=== PATIENT | female | born 1960 | race Caucasian/White ===

== ENCOUNTER 2025-03-25 16:29 | Inpatient (IN) ==
[2025-03-25 17:24] LABS: Basophils # (auto) 0.03 K/uL (0.00-0.20); Basophils % (auto) 0.5 %; Eosinophils # (auto) 0.02 K/uL (0.00-0.50); Eosinophils % (auto) 0.3 %; Hematocrit (blood only) 36.3 % (37.0-47.0); Hemoglobin 12.5 g/dl (12.0-16.0); Immature Granulocytes # (auto) 0.01 K/uL (0.01-0.20); Immature Granulocytes % (auto) 0.2 %; Lymphocytes # (auto) 1.27 K/uL (1.20-3.40); Lymphocytes % (auto) 20.3 %; Mean Corpuscular Hemoglobin 32.6 pg (25.0-34.0); Mean Corpuscular Hgb Conc 34.4 g/dL (32.0-36.0); Mean Corpuscular Volume 94.8 fL (80.0-100.0); Mean Platelet Volume 10.7 fL (9.4-12.4); Monocytes # (auto) 0.37 K/uL (0.11-0.59); Monocytes % (auto) 5.9 %; Neutrophils # (auto) 4.55 K/uL (1.40-6.50); Neutrophils % (auto) 72.8 %; Platelet Count 207 K/uL (130-400); RDW Coefficient of Variation 14.3 % (11.5-14.5); RDW Standard Deviation 48.7 fL (36.4-46.3); Red Blood Count 3.83 M/uL (4.20-5.40); White Blood Count 6.25 K/ul (4.8-10.8)
[2025-03-25 17:41] LABS: Albumin Globulin Ratio 1.1 (0.9-2); Albumin Level 3.7 gm/dl (3.4-5.0); BUN Creatinine Ratio 21.7 (10-20); Bilirubin,Total 1.1 mg/dl (0.2-1.0); Creatinine Clr Calc Pharmacy 83.9 ml/min; Globulin 3.5 gm/dl (2.5-4.0); Magnesium 1.6 mg/dl (1.7-2.4); Potassium 3.6 mmol/L (3.5-5.1); Total Protein 7.2 gm/dl (6.0-8.3)
[2025-03-25 17:47] LABS: Troponin I High Sensitivity 8.7 pg/ml (0-14)
[2025-03-25] MEDS: MAGNESIUM SULFATE / D5W 1 GM/100 ML BAG IV STA ×2 (17:48→23:55)
[2025-03-25 18:04] LABS: INR 1.1 (0.9-1.1); Prothrombin Time 11.8 Seconds (9.0-12.0)
[2025-03-25] MEDS: NITROGLYCERIN 2% OINTMENT 30GM TUBE EXT STA (18:16)
[2025-03-25] MEDS: FUROSEMIDE 40 MG/4 ML VIAL IV ONE ×2 (18:17→21:09)
--- NOTE | 2025-03-25 18:45 | Emergency Department Note ---
Impression & Plan Chest pain, Dyspnea, Congestive heart failure (CHF) ED Provider Note ED Provider Note NAME: LILLIE KENNEDY AGE:64 SEX: Female : 1960 ARRIVES VIA: Private vehicle INFORMANT: Patient ED PROVIDER(s): Katharine Lopez DO CHIEF COMPLAINT: Referred by Dr. Abebe HPI: This is a 64-year-old female who presents emergency room due to concern for chest pain, and shortness of breath. After being seen by her PCP today she was referred here for additional evaluation. Patient admits to approximately 1 week of chest pain and increased shortness of breath. She is also noted increased lower extremity edema however predominantly this has been on the left. She states she is more tired and cannot perform daily chores at home. She denies fevers or chills but states she does have a cough intermittently productive of clear/yellow sputum. No hemoptysis noted. Patient also notes she has been unable to sleep laying flat as it gives her increased difficulty breathing and worsening chest pain. She states the chest pain does not radiate into her back or arms. No change in bowel or bladder function. No recent change in any medications. She denies any history of heart or kidney problems. at bedside brought all of her medications with which do include furosemide daily. Patient is a diabetic. states her blood sugars typically run around 300. She states she does not follow with cardiology and has never had an echo. PAST MEDICAL HISTORY:See Below PAST SURGICAL HISTORY:See Below FAMILY HISTORY:See Below SOCIAL HISTORY:See Below HOME MEDICATIONS:See Below ALLERGIES:See Below VITALS:See Below PHYSICAL EXAMINATION: GENERAL: alert, uncomfortable appearing, well nourished, no distress, non-toxic EYE EXAM: normal conjunctiva, PERRL and EOM's grossly intact OROPHARYNX: no exudate, no erythema, lips, buccal mucosa, and tongue normal and mucous membranes are moist NECK: supple, no nuchal rigidity, no adenopathy, non-tender LUNGS: Clear to auscultation. Normal chest wall mechanics, no w/r/r HEART: no murmurs, S1 normal and S2 normal, no reproducible pain with palpation ABDOMEN: abdomen soft, non-tender, normo-active bowel sounds, no masses, no rebound or guarding. SKIN: no rashes, petechiae, orbruising UPPER EXTREMITIES: upper extremities are grossly normal. FROM, nml pulses b/l. LOWER EXTREMITIES: 2+ bilateral pitting edema although left greater than right. FROM, nml pulses b/l. NEURO EXAM: Normal sensorium, cranial nerves II-XII grossly intact, normal speech, no facial droop,nogross weakness of arms, no gross weakness of legs. Gross sensation intact. No ataxia. Vital Signs: reviewed and remarkable Differential Diagnosis: acute coronary syndrome, pericarditis, pulmonary embolus, aortic dissection, pneumonia, pneumothorax, musculoskeletal pain, shingles, GERD, GI bleed, as well as others were considered MEDICAL DECISION MAKING: This is a 64-year-old female who presents to the emergency department after being referred by her PCP due to concern for 1 week of chest pain, dyspnea, orthopnea, and fatigue as well as increased lower extremity edema. Patient was afebrile and hemodynamically stable. Labs drawn and sent, IV established, EKG and chest x-ray performed at bedside and interpreted by me and patient monitored on telemetry. Patient sent for an ultrasound of the left lower extremity additionally due to the asymmetry noted in the swelling of the left lower extremities. Patient given an additional dose of IV Lasix and Nitropaste applied additionally due to pulmonary edema noted on chest x-ray and elevated BNP. Patient's troponin negative, and renal function normal. No evidence of occult infectious etiology. I suspect evolving CHF. Patient denies any prior cardiology evaluation. Case discussed with the hospitalist team for additional evaluation and management. Patient did report improvement in her symptoms with medications given while in the ER. Consultation(s): 2044: Discussed with Dr. Wylie, [facility] hospitalist team, for additional evaluation and management. ER Treatment Provided: See below Diagnostics Interpreted By Me: -ECG: Normal sinus at 92, leftward axis, left bundle branch block, nonspecific ST/T wave changes, PVC noted -Cardiac Monitoring: An order was placed for continuous cardiac monitoring. The monitor shows a rate of 80 with normal sinus rhythm. -Laboratory studies: As stated above and show below. -Imaging studies: cxr: Mild cardiomegaly, no wide mediastinum, no focal consolidation, no pleural effusion, pulmonary edema noted bilaterally Triage Nursing Note Reviewed Prior/Outside Records Reviewed Past Med/Surg History Problem List (Updated 03/25/25 @ 21:09 by Micheal L Inessa, DO) Obesity (BMI 30.0-34.9) Diabetes mellitus type 2, noninsulin dependent Primary hypertension Acute on chronic heart failure with reduced ejection fraction (HFrEF, <= 40%) Dyspnea (Acute) Chest pain (Acute) Congestive heart failure (CHF) (Acute) Diabetes mellitus (Acute) Social History Smoking Status: Unknown if ever smoked Hx Alcohol Use: No Hx Substance Use: No Preferred Language: Kyrgyz Communication Ability: Effective Endorsement Clerk Required: No Beliefs That Will Affect Care: None Current Living Situation: Spouse Other Information That Helps Us Care for You: No Feels Safe at Home: Yes Safety Concerns: Feels Safe At This Time Assistive Devices: Denture - Upper and Glasses Allergies Allergies Allergy/AdvReac Type Severity Reaction Status Date / Time No Known Allergies Allergy Unverified 12/21/14 03:45 Home Meds Home Medications Medication Instructions Recorded Confirmed aspirin 81 mg tablet,delayed 81 mg PO DAILY 03/25/25 03/25/25 release furosemide 40 mg tablet 80 mg PO QAM 03/25/25 03/25/25 glipizide 2.5 mg tablet, extended 2.5 mg PO DAILYBB 03/25/25 03/25/25 release 24 hr lisinopril 2.5 mg tablet 2.5 mg PO QAM 03/25/25 03/25/25 metformin 500 mg tablet 100 mg PO BIDM 03/25/25 03/25/25 metoprolol succinate 50 mg 50 mg PO QAM 03/25/25 03/25/25 tablet,extended release 24 hr nitroglycerin 0.4 mg sublingual 0.4 mg sublingual .Q 5 MINUTES 03/25/25 03/25/25 tablet (Nitrostat) PRN Chest Pain Results & Data (ED) Vital Signs Vital Signs - 24 hr 03/25/25 16:33 03/25/25 17:18 03/25/25 17:20 Temperature 36.9 C Temperature Source Temporal Artery Scan Pulse Rate 90 89 90 Pulse Rate from SpO2 Sensor 89 Respiratory Rate 16 Respiratory Effort / Characteristics Non-Labored Spontaneous Respiratory Depth Normal Blood Pressure 134/85 Blood Pressure [Right Arm] Blood Pressure Mean 101 Blood Pressure Mean [Right Arm] Blood Pressure Position [Right Arm] Pulse Oximetry 95 Oxygen Delivery Method Room Air Sepsis Recent Fever Within 48 Hours No Sepsis New/Unexplained Change in Mental Status No Sepsis Action Taken by Nursing No Action Required 03/25/25 17:21 03/25/25 17:33 03/25/25 17:45 Temperature Temperature Source Pulse Rate 86 85 84 Pulse Rate from SpO2 Sensor 86 83 84 Respiratory Rate 24 21 Respiratory Effort / Characteristics Respiratory Depth Blood Pressure Blood Pressure [Right Arm] Blood Pressure Mean Blood Pressure Mean [Right Arm] Blood Pressure Position [Right Arm] Pulse Oximetry 95 Oxygen Delivery Method Sepsis Recent Fever Within 48 Hours Sepsis New/Unexplained Change in Mental Status Sepsis Action Taken by Nursing 03/25/25 17:51 03/25/25 18:18 03/25/25 18:21 Temperature Temperature Source Pulse Rate 80 83 79 Pulse Rate from SpO2 Sensor 81 83 80 Respiratory Rate 22 24 Respiratory Effort / Characteristics Respiratory Depth Blood Pressure Blood Pressure [Right Arm] Blood Pressure Mean Blood Pressure Mean [Right Arm] Blood Pressure Position [Right Arm] Pulse Oximetry 94 94 Oxygen Delivery Method Sepsis Recent Fever Within 48 Hours Sepsis New/Unexplained Change in Mental Status Sepsis Action Taken by Nursing 03/25/25 18:30 03/25/25 19:45 03/25/25 20:06 Temperature Temperature Source Pulse Rate Pulse Rate from SpO2 Sensor 89 88 Respiratory Rate 20 17 Respiratory Effort / Characteristics Respiratory Depth Blood Pressure 128/84 143/80 H Blood Pressure [Right Arm] 127/75 Blood Pressure Mean 98 101 Blood Pressure Mean [Right Arm] 92 Blood Pressure Position [Right Arm] Sitting Pulse Oximetry 93 92 Oxygen Delivery Method Sepsis Recent Fever Within 48 Hours Sepsis New/Unexplained Change in Mental Status Sepsis Action Taken by Nursing 03/25/25 20:12 03/25/25 20:30 03/25/25 21:00 Temperature Temperature Source Pulse Rate Pulse Rate from SpO2 Sensor 81 83 Respiratory Rate Respiratory Effort / Characteristics Respiratory Depth Blood Pressure 143/80 H 133/87 137/88 Blood Pressure [Right Arm] Blood Pressure Mean 104 102 104 Blood Pressure Mean [Right Arm] Blood Pressure Position [Right Arm] Pulse Oximetry 92 Oxygen Delivery Method Sepsis Recent Fever Within 48 Hours Sepsis New/Unexplained Change in Mental Status Sepsis Action Taken by Nursing Laboratory Data 03/25/25 17:12 03/25/25 17:12 Lab Results 03/25/25 03/25/25 Range/Units 17:12 20:20 WBC 6.25 (4.8-10.8) K/ul RBC 3.83 L (4.20-5.40) M/uL Hgb 12.5 (12.0-16.0) g/dl Hct 36.3 L (37.0-47.0) % MCV 94.8 (80.0-100.0) fL MCH 32.6 (25.0-34.0) pg MCHC 34.4 (32.0-36.0) g/dL RDW Std Deviation 48.7 H (36.4-46.3) fL RDW Coeff of Yeni 14.3 (11.5-14.5) % Plt Count 207 (130-400) K/uL MPV 10.7 (9.4-12.4) fL Immature Gran % (Auto) 0.2 % Neut % (Auto) 72.8 % Lymph % (Auto) 20.3 % Frio % (Auto) 5.9 % Eos % (Auto) 0.3 % Baso % (Auto) 0.5 % Neut # (Auto) 4.55 (1.40-6.50) K/uL Lymph # (Auto) 1.27 (1.20-3.40) K/uL Frio # (Auto) 0.37 (0.11-0.59) K/uL Eos # (Auto) 0.02 (0.00-0.50) K/uL Baso # (Auto) 0.03 (0.00-0.20) K/uL Immature Gran # (Auto) 0.01 (0.01-0.20) K/uL PT 11.8 (9.0-12.0) Seconds INR 1.1 (0.9-1.1) Sodium 137 (136-145) mmol/L Potassium 3.6 (3.5-5.1) mmol/L Chloride 103 (98-107) mmol/L Carbon Dioxide 25 (21-32) mmol/L Anion Gap 9 (3-11) BUN 18 (6-23) mg/dl Creatinine 0.83 (0.6-1.2) mg/dl Est Cr Clr Drug Dosing 83.9 ml/min eGFR 78.18 BUN/Creatinine Ratio 21.7 H (10-20) Glucose 203 H (70-99(Fasting)) mg/dl Calcium 9.0 (8.6-10.3) mg/dl Magnesium 1.6 L (1.7-2.4) mg/dl Total Bilirubin 1.1 H (0.2-1.0) mg/dl AST 23 (13-39) U/L ALT 26 (7-52) U/L Alkaline Phosphatase 78 (34-104) U/L Troponin I High Sens 8.7 (0-14) pg/ml B-Natriuretic Peptide 1113 H (0-100) pg/ml Total Protein 7.2 (6.0-8.3) gm/dl Albumin 3.7 (3.4-5.0) gm/dl Globulin 3.5 (2.5-4.0) gm/dl Albumin/Globulin Ratio 1.1 (0.9-2) Lipase 14 (11-82) U/L TSH 2.931 (0.300-4.500) uIu/ml Urine Color Yellow Urine Appearance Clear (Clear) Urine pH 7.5 (4.5-7.5) Ur Specific [place] 1.007 (1.000-1.030) Urine Protein Negative (Negative) Urine Glucose (UA) Negative (Negative) Urine Ketones Negative (Negative) Urine Blood Negative (Negative) Urine Nitrite Negative (Negative) Urine Bilirubin Negative (Negative) Urine Urobilinogen Negative (Negative) Ur Leukocyte Esterase 1+ H (Negative) Urine WBC (Auto) 0-5 (0-5) /hpf Urine RBC (Auto) 0-2 (0-2) /hpf U Hyaline Cast (Auto) 0-2 (0-2) /lpf U Epithel Cells (Auto) 0-2 (0-2) /hpf Urine Bacteria (Auto) None Seen (None Seen) Urine Comment Administered Medications Enoxaparin Sodium (Enoxaparin Inj 40 Mg/0.4 Ml Syr) 40 mg SQ Q24H [facility] Stop: 04/24/25 20:59 Last Admin: 03/25/25 23:55 Dose: 40 mg Documented By: BABAR Magnesium Sulfate/Dextrose (Magnesium Sulfate / D5w) 1 gm in 100 mls @ 50 mls/hr IV ONE STA Stop: 03/26/25 00:37 Last Admin: 03/25/25 23:55 Dose: 50 mls/hr Documented By: BABAR Insulin Aspart (Insulin Aspart Per Unit Charge) 0 units SC ACHS [facility] Stop: 04/24/25 22:37 Last Admin: 03/25/25 23:55 Dose: 6 units Documented By: BABAR Co-signed By: [facility] Discontinued Medications Furosemide (Furosemide 40 Mg/4 Ml Vial) 40 mg IV ONE ONE Stop: 03/25/25 18:11 Last Admin: 03/25/25 18:17 Dose: 40 mg Documented By: MARIA L Furosemide (Furosemide 40 Mg/4 Ml Vial) 80 mg IV ONE ONE Stop: 03/25/25 20:51 Last Admin: 03/25/25 21:09 Dose: 80 mg Documented By: MARIA L Magnesium Sulfate/Dextrose (Magnesium Sulfate / D5w) 1 gm in 100 mls @ 100 mls/hr IV NOW STA Stop: 03/25/25 18:42 Last Infusion: 03/25/25 19:02 Dose: Infused Documented By: MARIA L Admin: 03/25/25 17:48 Dose: 100 mls/hr Documented By: MARIA L Nitroglycerin (Nitroglycerin 2% Ointment 30gm Tube) 1 inch EXT NOW STA Stop: 03/25/25 18:11 Last Admin: 03/25/25 18:16 Dose: 1 inch Documented By: MARIA L Potassium Chloride (Potassium Chloride Crtab 20 Meq Tabcr) 40 meq PO NOW STA Stop: 03/25/25 22:39 Last Admin: 03/25/25 23:55 Dose: 40 meq Documented By: BABAR Imaging Data Radiologist's Impression: Venous Doppler Study 03/25/25 17:07 EXAM: US venous doppler LE CLINICAL HISTORY: Edema, pain. TECHNIQUE: Ultrasound examination of left lower extremity veins was performed in real time and duplex. One or more of the following were performed- spectral analysis, resistive index, waveform analysis, and pulsed Doppler. COMPARISON: None. FINDINGS: Normal phasic, non-pulsatile and spontaneous flow is noted in left common femoral, proximal great saphenous, superficial femoral, deep femoral, popliteal, anterior, posterior tibial and peroneal veins. Visualized veins of left lower extremity demonstrate normal compressibility. No sonographic evidence of acute deep vein thrombosis (DVT) is detected in the visualized veins of lower extremity. Compression and Augmentation: All evaluated veins compress fully with applied transducer pressure. Augmentation of venous flow is noted with distal compression. Additional Findings: No evidence of intraluminal thrombus. IMPRESSION: No sonographic evidence of acute DVT detected in left common femoral, proximal great saphenous, superficial femoral, deep femoral, popliteal, anterior, posterior tibial and peroneal veins, at the time of examination. Disclaimer: DVT could be missed early in the disease when clot burden is minimal. For patients with moderate and high pretest probability of DVT and negative ultrasound, the [employer] clinical guidelines recommend testing with a D-dimer assay or repeat ultrasound in 5-7 days. If symptoms worsen, the Society of radiologists in ultrasound recommends repeating ultrasound even earlier. Electronically signed by Ole Montes 03-25-2025 8:08 PM Chest X-Ray 03/25/25 17:08 EXAM: XR chest 1V portable CLINICAL HISTORY: sob, cp. TECHNIQUE: An X-ray image of the chest is obtained in AP projection. COMPARISON: No prior studies are available for comparison. FINDINGS: Pulmonary Parenchyma: Accentuated bronchovascular markings and pulmonary reticulations bilaterally. associated bilateral middle and lower lung zones areas of parenchymal veiling. No evidence of consolidation, collapse, or focal opacities. No pulmonary nodules are identified. No evidence of pleural effusion or pleural thickening. Heart and Mediastinum: Mild cardiomegaly. No mediastinal widening or masses. No hilar or mediastinal lymphadenopathy. prominent hilar vascular shadows. prominent aortic knuckle. Bony Thorax: Bony thorax appears intact without fractures or deformities. Soft Tissues: Soft tissues overlying the chest wall are unremarkable. IMPRESSION: 1. Mild cardiomegaly. 2. Bilateral accentuation of bronchovascular markings and pulmonary reticulations with parenchymal veiling, possibly attributed to pulmonary congestion/edema. Also early inflammatory process could not be ruled out. 3. Correlate clinically. Electronically signed by Ole Montes 03-25-2025 7:12 PM Discharge Plan Visit Data Chief Complaint: Cardiac Assessment Stated Complaint: CARDIAC ASSESSMENT ED Provider: Katharine Lopez Discharge Problem: Chest pain, Dyspnea, Congestive heart failure (CHF) Patient Disposition: Admitted As Inpatient Condition: Fair Discharge Instructions Interventions: ED Discharge Assessment Last Done: 03/25/25 22:13
--- NOTE | 2025-03-25 19:13 | XRay Report ---
EXAM: XR chest 1V portable CLINICAL HISTORY: sob, cp. TECHNIQUE: An X-ray image of the chest is obtained in AP projection. COMPARISON: No prior studies are available for comparison. FINDINGS: Pulmonary Parenchyma: Accentuated bronchovascular markings and pulmonary reticulations bilaterally. associated bilateral middle and lower lung zones areas of parenchymal veiling. No evidence of consolidation, collapse, or focal opacities. No pulmonary nodules are identified. No evidence of pleural effusion or pleural thickening. Heart and Mediastinum: Mild cardiomegaly. No mediastinal widening or masses. No hilar or mediastinal lymphadenopathy. prominent hilar vascular shadows. prominent aortic knuckle. Bony Thorax: Bony thorax appears intact without fractures or deformities. Soft Tissues: Soft tissues overlying the chest wall are unremarkable. IMPRESSION: 1. Mild cardiomegaly. 2. Bilateral accentuation of bronchovascular markings and pulmonary reticulations with parenchymal veiling, possibly attributed to pulmonary congestion/edema. Also early inflammatory process could not be ruled out. 3. Correlate clinically. Electronically signed by Ole Montes 03-25-2025 7:12 PM
--- NOTE | 2025-03-25 20:08 | Ultrasound Report ---
EXAM: US venous doppler LE LT CLINICAL HISTORY: Edema, pain. TECHNIQUE: Ultrasound examination of left lower extremity veins was performed in real time and duplex. One or more of the following were performed- spectral analysis, resistive index, waveform analysis, and pulsed Doppler. COMPARISON: None. FINDINGS: Normal phasic, non-pulsatile and spontaneous flow is noted in left common femoral, proximal great saphenous, superficial femoral, deep femoral, popliteal, anterior, posterior tibial and peroneal veins. Visualized veins of left lower extremity demonstrate normal compressibility. No sonographic evidence of acute deep vein thrombosis (DVT) is detected in the visualized veins of lower extremity. Compression and Augmentation: All evaluated veins compress fully with applied transducer pressure. Augmentation of venous flow is noted with distal compression. Additional Findings: No evidence of intraluminal thrombus. IMPRESSION: No sonographic evidence of acute DVT detected in left common femoral, proximal great saphenous, superficial femoral, deep femoral, popliteal, anterior, posterior tibial and peroneal veins, at the time of examination. Disclaimer: DVT could be missed early in the disease when clot burden is minimal. For patients with moderate and high pretest probability of DVT and negative ultrasound, the [employer] clinical guidelines recommend testing with a D-dimer assay or repeat ultrasound in 5-7 days. If symptoms worsen, the Society of radiologists in ultrasound recommends repeating ultrasound even earlier. Electronically signed by Ole Montes 03-25-2025 8:08 PM
[2025-03-25 20:40] LABS: Appearance Urine Clear (Clear); Bacteria Urine Automated None Seen (None Seen); Bilirubin Urine Negative (Negative); Blood Urine Negative (Negative); Cast Urine Automated 0-2 /lpf (0-2); Color Urine Yellow; Epithelial Cell Urine Auto 0-2 /hpf (0-2); Glucose Urine UA Negative (Negative); Ketones Urine Negative (Negative); Leukocyte Esterase Urine 1+ (Negative); Nitrite Urine Negative (Negative); Protein Urine Negative (Negative); RBC Urine Automated 0-2 /hpf (0-2); Specific Gravity Urine 1.007 (1.000-1.030); Urobilinogen Urine Negative (Negative); WBC Urine Automated 0-5 /hpf (0-5); pH Urine 7.5 (4.5-7.5)
--- NOTE | 2025-03-25 21:11 | History & Physical Report ---
Date of Service March 25, 2025 Assessment & Plan (1) Acute on chronic heart failure with reduced ejection fraction (HFrEF, <= 40%): (2) Primary hypertension: (3) Diabetes mellitus type 2, noninsulin dependent: (4) Obesity (BMI 30.0-34.9): Plan Patient 64-year-old female with known systolic heart failure with ejection fraction of 2025% presents with increasing shortness of breath, dyspnea on exertion and leg swelling over the past several weeks. Presents in decompensated heart failure. Patient requires hospital level care, monitoring and IV medications and specialty consultation. Admit to monitored setting Aggressive IV diuresis with Lasix. Patient reports that she was taking 160 to 200 mg of Lasix orally on a daily basis at home without significant impact on her edema or symptoms. Increase lisinopril dose Continue metoprolol XL, monitor blood pressure Electrolyte replacement Update echocardiogram Cardiology consultation Monitor glucose, insulin sliding scale. At some point may need to have discussion with them if that she would be interested starting Jardiance, may be an issue affordability for them Start Aldactone Overall work towards goal-directed medical therapy for CHF Case management to help coordinate outpatient follow-up with CHF clinic Discussion advanced directives with patient and at the bedside. They request that she be DNR/DNI History of Present Illness Chief Complaint: Shortness of breath and leg swelling Primary Care Provider: Bronson Thakur Patient 64-year-old female with known systolic congestive heart failure and cardiomyopathy presents to the emergency room from her physician's office with complaints of shortness of breath that has been progressing over the past several weeks as well as leg swelling. In the emergency room chest x-ray and BNP is consistent with decompensated heart failure. Ultrasound lower extremities negative for DVT. She was referred to our service for further evaluation. Time my evaluation patient still somewhat short of breath. She admits to significant leg swelling . This is progressed over the past several weeks. She admits to dyspnea on exertion, orthopnea and decreased exercise tolerance. She was concerned that she could not fully plant her whole garden due to her shortness of breath. She denies any chest pain. No fever or chills. No cough or cold symptoms. No nausea or vomiting. No changes in her bowel or bladder habits. She reports that she knows that she needs to take additional Lasix. She states that she has been taking up to four 540 mg tablets of Lasix on a daily basis but has not really noticed much improvement in her edema. Allergies Allergy/AdvReac Type Severity Reaction Status Date / Time No Known Allergies Allergy Unverified 12/21/14 03:45 Home Medications Medication Instructions Recorded Confirmed Type aspirin 81 mg tablet,delayed 81 mg PO DAILY 03/25/25 03/25/25 History release furosemide 40 mg tablet 80 mg PO QAM 03/25/25 03/25/25 History glipizide 2.5 mg tablet, extended 2.5 mg PO DAILYBB 03/25/25 03/25/25 History release 24 hr lisinopril 2.5 mg tablet 2.5 mg PO QAM 03/25/25 03/25/25 History metformin 500 mg tablet 100 mg PO BIDM 03/25/25 03/25/25 History metoprolol succinate 50 mg 50 mg PO QAM 03/25/25 03/25/25 History tablet,extended release 24 hr nitroglycerin 0.4 mg sublingual 0.4 mg sublingual .Q 5 MINUTES 03/25/25 03/25/25 History tablet (Nitrostat) PRN Chest Pain Past Med/Surg History Problem List (Updated 03/25/25 @ 21:09 by Micheal Wylie DO) Obesity (BMI 30.0-34.9) Diabetes mellitus type 2, noninsulin dependent Primary hypertension Acute on chronic heart failure with reduced ejection fraction (HFrEF, <= 40%) Dyspnea (Acute) Chest pain (Acute) Congestive heart failure (CHF) (Acute) Diabetes mellitus (Acute) Social History Smoking Status: Never smoker Preferred Language: Tunisian Feels Safe at Home: Yes Review of Systems Review of Systems: Pertinent positive and negative review of systems as mentioned in the HPI Physical Exam Physical Exam: Constitutional: Alert, ill in appearance, nontoxic HEENT: Mucous membranes moist. Sclera clear Neck: Soft, no adenopathy Lungs: Decreased breath sounds, poor airflow, fine crackles throughout CV: S1-S2, regular, no significant murmur Abdomen: Soft, nontender, nondistended Extremities: Thick pitting edema up through knees and posterior thighs Musculoskeletal: No significant joint tenderness Neuro: No focal deficits Psych: Cooperative, normal mood Results & Data Results & Data Vital Signs (Past 12 Hours) Vital Signs Temp Pulse Resp BP BP Pulse Ox O2 Del Method 03/25/25 20:06 17 143/80 H 92 03/25/25 19:45 20 128/84 93 03/25/25 18:30 127/75 03/25/25 18:21 79 24 94 03/25/25 18:18 83 03/25/25 17:51 80 22 94 03/25/25 17:45 84 03/25/25 17:33 85 21 95 03/25/25 17:21 86 24 03/25/25 17:20 90 03/25/25 17:18 89 03/25/25 16:33 36.9 C 90 16 134/85 95 Room Air Diagnostic Findings Reviewed imaging, laboratory and diagnostic studies. Pertinent findings as below. Reviewed outside EMR, echocardiogram from 2014 shows ejection fraction 20-25% Urinalysis unremarkable Ultrasound of the lower extremities negative for DVT Personally reviewed chest x-ray images no consolidative infiltrate, pulmonary edema in the lower lobes Personally reviewed EKG sinus rhythm with incomplete bundle branch block WBC 6.2 Hemoglobin 12.5 Platelets of 207 INR 1.1 Creatinine 0.83 Magnesium 1.6 Potassium 3.6 BNP 1113 Troponin 8.7 Code Status & VTE Plan VTE Prophylaxis Plan VTE Prophylaxis will be ordered: Yes
[2025-03-25] MEDS ORDERED: ALUMINUM/MAGNESIUM SUSP 30 ML UDC PO PRN (22:38)
[2025-03-25] MEDS ORDERED: ONDANSETRON INJ 2 MG/ML 2 ML VIAL IV PRN (22:38)
[2025-03-25] MEDS ORDERED: GLUCOSE 40% GEL 15 GM TUBE PO PRN (22:38)
[2025-03-25] MEDS ORDERED: DEXTROSE 50% 50 ML SYRINGE IV PRN (22:38)
[2025-03-25] MEDS ORDERED: GLUCAGON FOR INJ 1 MG VIAL SQ PRN (22:38)
[2025-03-25] MEDS ORDERED: CARBOHYDRATES FOR HYPOGLYCEMIA PO PRN (22:38)
[2025-03-25] MEDS ORDERED: GLUCOSE 10 TAB/TUBE PO PRN (22:38)
[2025-03-25] MEDS ORDERED: MELATONIN 3 MG TAB PO PRN (22:38)
[2025-03-25 23:16] LABS: Thyroid Stimulating Hormone 2.931 uIu/ml (0.300-4.500)
[2025-03-25] MEDS: INSULIN ASPART PER UNIT CHARGE SC SCH (23:55)
[2025-03-25] MEDS: POTASSIUM CHLORIDE CRTAB 20 MEQ TABCR PO STA (23:55)
[2025-03-25] MEDS: ENOXAPARIN INJ 40 MG/0.4 ML SYR SQ SCH (23:55)
[2025-03-26] MEDS: ACETAMINOPHEN 325 MG TAB PO PRN (00:09)
[2025-03-26 07:27] LABS: Chol HDL Ratio 4.4 (0-5)
[2025-03-26 07:29] LABS: Estimated Average Glucose 212 mg/dl
[2025-03-26] MEDS: lisinopril 10 MG TAB PO SCH (08:22)
[2025-03-26] MEDS: ASPIRIN 81 MG ECTAB PO SCH (08:22)
[2025-03-26] MEDS: MAGNESIUM OXIDE 400 MG TAB PO SCH (08:23)
[2025-03-26] MEDS: SPIRONOLACTONE 25 MG TAB PO SCH (08:23)
[2025-03-26] MEDS: METOPROLOL SUCC 50MG EXT REL TAB PO SCH (08:23)
[2025-03-26] MEDS: FUROSEMIDE 40 MG/4 ML VIAL IV SCH (08:24)
--- NOTE | 2025-03-26 08:25 | Cardiology Consultation ---
Date of Consultation March 26, 2025 Assessment & Plan (1) Acute on chronic heart failure with reduced ejection fraction (HFrEF, <= 40%): (2) Primary hypertension: (3) Diabetes mellitus type 2, noninsulin dependent: Plan Assessment: 64 year old [employer] female with known history of Systolic heart failure presented to the ER with several weeks of worsening lower extremity edema, abdominal bloat and shortness of breath. Plan: 1. Acute on Chronic HFrEF: -Patient with known prior history of non-ischemic cardiomyopathy dx in 2014 on echocardiogram with a cardiac catheterization at that time demonstrating normal coronaries. Patient had opted for conservative medical managment and declined ICD at that time due to cultural/amish beliefs. -She is showing modest volume overload on today's exam. Elevated BNP and chest xray showing pulmonary edema. -Continue Furosemide 80mg IV BID. -Strict I&O, Daily weights on standing scale and close monitoring of both renal function and serum electrolytes. Goal Serum K> 4.0 and Serum Mag > 2.0 -CHF teaching -Did discuss prior echocardiogram findings dating back in which patient and spouse report they have been aware of the weakened heart pump, and continue to decline ICD consideration. -Continue Toprol xl 50mg PO QD, Lisinopril 10mg PO QD (increased from 2.5mg QD on home regimen), Spironolactone 25mg PO QD (new addition), and potassium supplementation as appropriate. Serum mag was borderline and patient has now been started on oral supplementation. 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 Moderate TR. Severe pulmonary HTN with PASP 60mmHg, grade II diastolic dysfunction consistent with markedly increased left atrial pressure. -Continue to monitor fluid status closely. 2. Primary HTN -Well controlled at this time. Continue toprol xl, agree with increase of Lisinopril dose and additional of spironolactone. 3. DM: -Poorly controlled. HgB A1C 9.0. Continued management per primary team. Case has been discussed with Dr. Mendoza. Further recommendations regarding plan of care as per his assessment. I spent a total of 45 minutes on the date of service in preparation, delivery, documentation of the care provided to the patient excluding any time spent in the performance of separately billed services. JAIDEN Sifuentes [facility] [address] Cardiology [facility] Supervising Physician Co-Signing Physician Notes Attending attestation: Case reviewed with the advanced practitioner. I have personally performed a history and physical examination on the patient. I have reviewed the advanced practitioner's documentation on the date of service referenced in note, and I agree with, and take responsibility for the plan of care. EKG performed 03/25/2025 and interpret independently: Sinus rhythm at 92 bpm nonspecific intraventricular conduction delay, QRS duration 154 ms, age- indeterminate lateral infarct pattern noted in the lateral precordial leads. Compared to the last available previous tracing performed 12/23/2024, the lateral infarct pattern is new. Summary of transthoracic echocardiogram performed today 03/26/2025: The left ventricle is severely dilated. There is severe global hypokinesis of the left ventricle. The left ventricular systolic function is severely reduced. The left Ventricular Ejection Fraction = <20%. The left atrium is severely dilated. There is severe mitral regurgitation. 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 There is moderate tricuspid regurgitation. Severe pulmonary hypertension is present. The pulmonary systolic pressure is estimated to be 60 mmHg. Diastolic dysfunction, Grade III (restrictive pattern), consistent with markedly increased left atrial pressure. Compared to the previous study dated 12/21/2014, the left ventricular ejection fraction was in the range of 20-25 percent at that time with findings of moderate mitral regurgitation at that time. The patient's cardiac history dates back to December, when she presented to [facility] [place] after several weeks of nonspecific viral illness. She was found to have severe left ventricular systolic dysfunction with ejection fraction in the range of 20-25%. Cardiac catheterization revealed angiographically normal coronary arteries as performed by Dr. Metz at that time per review of the records. She had not been seen in outpatient cardiology follow-up since August, with visit at [facility] outpatient clinic at that time. Her cardiac medication regimen has not changed significantly dating back to 2014, but I do have concerns with regards to her actual adherence with noted uncontrolled blood sugar, hemoglobin A1c has been over 10%. Echocardiogram today reveals further decline in her ejection fraction to the range of less than 20% with severe left ventricular chamber dilatation. Patient felt to have heart failure with reduced ejection fraction, likely still on the basis of a nonischemic cardiomyopathy. Continue medication therapy including aspirin 81 mg daily, lisinopril 10 mg daily, metoprolol succinate 50 mg daily, spironolactone 25 mg daily, potassium supplementation, and furosemide 80 mg twice daily. Titration of medication and close follow-up hindered by her social history however perhaps patient would be a candidate for SGLT2 inhibitor and Entresto if blood pressure allows and if other barriers could be overcome perhaps in the form of an assistance program. I spent a total of 20 minutes coordinating, documenting, and providing care for this patient excluding time spent in the performance of separately billed services or time spent by another provider. Christian Mendoza DO History of Present Illness Reason for Consultation: CHF Requesting Physician: Balaji felixist Attending Physician: Eliot Serrato MD History of Present Illness HPI: patient is a 64 year old female with PMHx significant for chronic systolic heart failure due to a nonischemic cardiomyopathy with LVEF 20-25% (dating back to 2014), HTN and DM that presented to the ER with several weeks of increasing shortness of breath and bilateral leg swelling. Patient states that she had started noticing an increase in symptoms over the past few weeks. Patient's spouse is at bedside and offers some insight as well. He feels as though her symptoms may have been ramping up approx 5 months ago. They had both been sick with a URI illness, and was utilizing nebulizer treatments. He feels that she just never seemed to regain her strength following that illness, but has markedly declined these last few weeks. Spouse states that they presented to 'Dr. [facility] urgent care clinic' yesterday and was recommended to come to the hospital as she was with notable volume overloaded. Patient cooks all of her own meals, utilizes salt in her cooking, but they do not add salt to the prepped meal. She denies any significant change in her diet and no increased fluid intake Patient denies any chest pain, pressure or palpitations, denies any pre-syncope or syncope. Patient has not followed with Cardiology since 2017, but she does follow with her PCP and was last seen in his office January 2025. EKG SR with PVCs, IVCD, possible lateral infarct, ? LEft BBB. chest xray IMPRESSION: 1. Mild cardiomegaly. 2. Bilateral accentuation of bronchovascular markings and pulmonary reticulations with parenchymal veiling, possibly attributed to pulmonary congestion/edema. Also early inflammatory process could not be ruled out. 3. Correlate clinically. Review of telemetry shows SR with 1st degree AV block rates 60-80's. Occasional PAC's, but no acute events overnight. High sensitivity troponin negative x1 BNP 1113 -600ml fluid balance Allergies Allergy/AdvReac Type Severity Reaction Status Date / Time No Known Allergies Allergy Unverified 12/21/14 03:45 Home Medications Medication Instructions Recorded Confirmed Type aspirin 81 mg tablet,delayed 81 mg PO DAILY 03/25/25 03/25/25 History release furosemide 40 mg tablet 80 mg PO QAM 03/25/25 03/25/25 History glipizide 2.5 mg tablet, extended 2.5 mg PO DAILYBB 03/25/25 03/25/25 History release 24 hr lisinopril 2.5 mg tablet 2.5 mg PO QAM 03/25/25 03/25/25 History metformin 500 mg tablet 100 mg PO BIDM 03/25/25 03/25/25 History metoprolol succinate 50 mg 50 mg PO QAM 03/25/25 03/25/25 History tablet,extended release 24 hr nitroglycerin 0.4 mg sublingual 0.4 mg sublingual .Q 5 MINUTES 03/25/25 03/25/25 History tablet (Nitrostat) PRN Chest Pain Patient History Social History Smoking Status: Unknown if ever smoked Hx Alcohol Use: No Hx Substance Use: No Preferred Language: [place] Islander Communication Ability: Effective 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 Beliefs That Will Affect Care: None Current Living Situation: Spouse Other Information That Helps Us Care for You: No Feels Safe at Home: Yes Safety Concerns: Feels Safe At This Time Assistive Devices: Denture - Upper and Glasses Review of Systems Review of Systems: All systems reviewed & are unremarkable except as noted in HPI & below Physical Exam Constitutional: well developed, well nourished and + ill appearing; no acute distress Neck: normal visual inspection and trachea midline Respiratory: normal respiratory effort; no respiratory distress, no labored breathing and no cough Auscultation: + diminished lung sounds (bilateral bases ); no crackles, no rales, no rhonchi and no wheezes Cardiovascular: Rate/Rhythm: regular rate and regular rhythm Heart Sounds: normal S1, normal S2 and + murmur (+2/6 systolic ) Vessels: dorsalis pedis pulses present; no JVD Extremities: + edema (+2 BLE, left worse than right) Skin: no rashes, warm and dry Psychiatric: A+Ox3, euthymic affect Results & Data Vital Signs (Past 12 Hours) Vital Signs Temp Pulse Pulse Resp BP BP Pulse Ox 03/26/25 07:50 36.7 C 77 18 108/72 93 03/26/25 02:09 36.8 C 81 18 113/71 96 03/25/25 22:24 36.3 C L 91 H 18 134/85 93 03/25/25 21:48 95 H 19 139/88 92 03/25/25 21:14 75 03/25/25 21:00 137/88 92 03/25/25 20:30 133/87 O2 Del Method 03/26/25 07:50 Room Air 03/26/25 02:09 Room Air 03/25/25 22:24 Room Air 03/25/25 21:48 03/25/25 21:14 03/25/25 21:00 03/25/25 20:30 Laboratory Results Cardiac Enzymes 03/25/25 Range/Units 17:12 AST 23 (13-39) U/L Troponin I High Sens 8.7 (0-14) pg/ml B-Natriuretic Peptide 1113 H (0-100) pg/ml Coagulation 03/25/25 Range/Units 17:12 PT 11.8 (9.0-12.0) Seconds B-Natriuretic Peptide 1113 H (0-100) pg/ml Lipids 03/26/25 Range/Units 06:25 Triglycerides 89 (0-150) mg/dl Cholesterol 148 (0-200) mg/dl HDL Cholesterol 34 mg/dl Cholesterol/HDL Ratio 4.4 (0-5) CBC 03/25/25 Range/Units 17:12 WBC 6.25 (4.8-10.8) K/ul RBC 3.83 L (4.20-5.40) M/uL Hgb 12.5 (12.0-16.0) g/dl Hct 36.3 L (37.0-47.0) % Plt Count 207 (130-400) K/uL Neut # (Auto) 4.55 (1.40-6.50) K/uL Lymph # (Auto) 1.27 (1.20-3.40) K/uL Crawford # (Auto) 0.37 (0.11-0.59) K/uL Eos # (Auto) 0.02 (0.00-0.50) K/uL Baso # (Auto) 0.03 (0.00-0.20) K/uL Comprehensive Metabolic Panel 03/25/25 Range/Units 17:12 Sodium 137 (136-145) mmol/L Potassium 3.6 (3.5-5.1) mmol/L Chloride 103 (98-107) mmol/L Carbon Dioxide 25 (21-32) mmol/L BUN 18 (6-23) mg/dl Creatinine 0.83 (0.6-1.2) mg/dl Glucose 203 H (70-99(Fasting)) mg/dl Calcium 9.0 (8.6-10.3) mg/dl AST 23 (13-39) U/L ALT 26 (7-52) U/L Alkaline Phosphatase 78 (34-104) U/L Total Protein 7.2 (6.0-8.3) gm/dl Albumin 3.7 (3.4-5.0) gm/dl Intake and Output 03/25/25 03/26/25 03/26/25 22:59 06:59 14:59 Intake Total 100 / 500 400 / 500 Output Total 1400 / 1400 Balance 100 / -900 -1000 / -900 Intake: IV 100 / 200 100 / 200 Magnesium Sulfate / D5w 1 gm In 100 / 200 100 / 200 100 ml @ 50 mls/hr IV ONE STA Rx#:[id number] Oral 300 / 300 Output: Urine 1400 / 1400 Other: # Unmeasured Voids 3 Weight 99.4 kg 99.2 kg Weight Measurement Method Built in Bedscale Standing Scale Diagnostic Findings Echocardiogram 12/21/2014 -LVEF severely reduced 20-25% RV systolic function mildly to moderately reduced Right atrium moderately dilated Moderate MR Moderate to severe TR Moderate pulmonary HTN
[2025-03-26] MEDS: POTASSIUM CHLORIDE CRTAB 20 MEQ TABCR PO SCH (08:45)
[2025-03-26] MEDS: POLYETHYLENE (MIRALAX) 17 GM PACK PO SCH (08:46)
--- NOTE | 2025-03-26 11:18 | Hospitalist Progress Note ---
Date of Service March 26, 2025 Assessment & Plan (1) Acute on chronic heart failure with reduced ejection fraction (HFrEF, <= 40%): Plan: Patient 64-year-old female with known systolic heart failure with ejection fraction of 2025% presents with increasing shortness of breath, dyspnea on exertion and leg swelling over the past several weeks. Presents in decompensated heart failure. Patient requires hospital level care, monitoring and IV medications and specialty consultation. Presented with dyspnea and swelling of the legs more on the left than the right for several weeks Chest x-ray is compatible with cardiomegaly and CHF Aggressive IV diuresis with Lasix. Patient reports that she was taking 160 to 200 mg of Lasix orally on a daily basis at home without significant impact on her edema or symptoms. She has been diuresing enough with a negative balance of 600 since admission Will continue current dose of furosemide 80 mg IV twice daily and monitor electrolytes Appreciate cardiology input and recommendation Echo of the heart showedLV is severely dilated with severe global hypokinesis of the left ventricle. LV systolic function is severely reduced with EF of less than 20%. LA severely dilated and there is severe mitral regurgitation. 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 Severe pulmonary hypertension is present compared to the echo of the LV systolic function was 20 to 25% at the time and the findings of moderate mitral regurgitation at that time too Increase lisinopril dose And Start Aldactone Continue metoprolol XL, monitor blood pressure She is clinically much better and will continue current management The special education assistant discussed about ICD placement with the patient but the patient refused (2) Primary hypertension: (3) Diabetes mellitus type 2, noninsulin dependent: Plan: Monitor glucose, insulin sliding scale. At some point may need to have discussion with them if that she would be interested starting Jardiance, may be an issue affordability for them (4) Obesity (BMI 30.0-34.9): Plan DVT prophylaxis Subcu Lovenox CODE STATUS Full Case management to help coordinate outpatient follow-up with CHF clinic Discussed with the Admission and Anticipated Discharge Date Admission Date: March 25, 2025 Subjective 03/26/2025 The patient was seen and examined in telemetry unit in presence of the She was admitted with acute CHF and has been feeling much better since this morning Denies any chest pain, palpitation or shortness of breath She has been saturating normally on room air and the left leg swelling is improved Review of Systems Review of Systems: All systems reviewed and unremarkable except as noted below Physical Exam Physical Exam: Lying in bed without any acute distress Constitutional: well developed, well nourished, + ill appearing and + obese Eyes: PERRL, conjunctivae normal, anicteric sclerae ENMT: external ear and nose normal, oropharynx normal Neck: trachea midline, no thyromegaly Respiratory: no respiratory distress Auscultation: + diminished lung sounds and + crackles (Minimal crackles at the bases) Cardiovascular: Rate/Rhythm: regular rate and regular rhythm; not tachycardic Heart Sounds: normal S1 and normal S2; no murmur Extremities: + edema ( 1+ edema bilaterally more on the left than the right side) Gastrointestinal (Abdomen): Inspection/Auscultation: normal bowel sounds; abdomen not distended Percussion/Palpation: abdomen soft; abdomen nontender Musculoskeletal: No acute arthritis involving any of the joint Neurologic: normal touch/pain/proprioception and moves all extremities; no focal motor deficits Lymphatic: no cervical or axillary lymphadenopathy Results & Data Results & Data Vital Signs (Past 12 Hours) Vital Signs Temp Pulse Pulse Resp BP Pulse Ox O2 Del Method 03/26/25 08:00 78 03/26/25 07:50 36.7 C 77 18 108/72 93 Room Air 03/26/25 02:09 36.8 C 81 18 113/71 96 Room Air Laboratory Results Short CBC 03/25/25 Range/Units 17:12 WBC 6.25 (4.8-10.8) K/ul Hgb 12.5 (12.0-16.0) g/dl Hct 36.3 L (37.0-47.0) % Plt Count 207 (130-400) K/uL BMP 03/25/25 17:12 Sodium 137 Potassium 3.6 Chloride 103 Carbon Dioxide 25 BUN 18 Creatinine 0.83 Glucose 203 H Calcium 9.0 Liver Function 03/25/25 Range/Units 17:12 Total Bilirubin 1.1 H (0.2-1.0) mg/dl AST 23 (13-39) U/L ALT 26 (7-52) U/L Alkaline Phosphatase 78 (34-104) U/L Albumin 3.7 (3.4-5.0) gm/dl Urine 03/25/25 Range/Units 20:20 Urine Color Yellow Urine Appearance Clear (Clear) Urine pH 7.5 (4.5-7.5) Ur Specific [place] 1.007 (1.000-1.030) Urine Protein Negative (Negative) Urine Glucose (UA) Negative (Negative) Medications Administered Current Inpatient Medications Acetaminophen (Acetaminophen 325 Mg Tab) 650 mg PO Q4H PRN PRN Reason: Pain or Fever Stop: 04/24/25 22:37 Last Admin: 03/26/25 00:09 Dose: 650 mg Al Hydrox/Mg Hydrox/Simethicone (Aluminum/Magnesium Susp 30 Ml Udc) 15 ml PO Q4H PRN PRN Reason: Dyspepsia Stop: 04/24/25 22:37 Aspirin (Aspirin 81 Mg Ectab) 81 mg PO DAILY [facility] Stop: 04/25/25 08:59 Last Admin: 03/26/25 08:22 Dose: 81 mg Dextrose (Dextrose 50% 50 Ml Syringe) 25 - 50 ml IV UD PRN; Protocol PRN Reason: Hypoglycemia Protocol Stop: 04/24/25 22:37 Enoxaparin Sodium (Enoxaparin Inj 40 Mg/0.4 Ml Syr) 40 mg SQ Q24H [facility] Stop: 04/24/25 20:59 Last Admin: 03/25/25 23:55 Dose: 40 mg Furosemide (Furosemide 40 Mg/4 Ml Vial) 80 mg IV BID17 [facility] Stop: 04/25/25 08:59 Last Admin: 03/26/25 08:24 Dose: 80 mg Glucagon (Glucagon For Inj 1 Mg Vial) 1 mg SQ UD PRN; Protocol PRN Reason: Hypoglycemia Protocol Stop: 04/24/25 22:37 Glucose (Glucose 40% Gel 15 Gm Tube) 15 - 30 gm PO UD PRN; Protocol PRN Reason: Hypoglycemia Protocol Stop: 04/24/25 22:37 Glucose (Glucose 10 Tab/Tube) 4 - 8 tab PO UD PRN; Protocol PRN Reason: Hypoglycemia Protocol Stop: 04/24/25 22:37 Insulin Aspart (Insulin Aspart Per Unit Charge) 0 units SC ACHS [facility] Stop: 04/24/25 22:37 Last Admin: 03/26/25 08:22 Dose: 3 units Lisinopril (Lisinopril 10 Mg Tab) 10 mg PO QAM [facility] Stop: 04/25/25 08:59 Last Admin: 03/26/25 08:22 Dose: 10 mg Magnesium Oxide (Magnesium Oxide 400 Mg Tab) 400 mg PO QAM [facility] Stop: 04/25/25 08:59 Last Admin: 03/26/25 08:23 Dose: 400 mg Melatonin (Melatonin 3 Mg Tab) 3 mg PO HS PRN PRN Reason: Sleep Stop: 04/24/25 22:37 Metoprolol Succinate (Metoprolol Succ 50mg Ext Rel Tab) 50 mg PO QAM [facility] Stop: 04/25/25 08:59 Last Admin: 03/26/25 08:23 Dose: 50 mg Miscellaneous (Carbohydrates For Hypoglycemia ) 15 - 30 gm PO UD PRN PRN Reason: Hypoglycemia Protocol Stop: 04/24/25 22:37 Ondansetron HCl (Ondansetron Inj 2 Mg/Ml 2 Ml Vial) 4 mg IV Q6H PRN PRN Reason: Nausea Stop: 04/24/25 22:37 Polyethylene Glycol (Polyethylene (Miralax) 17 Gm Pack) 17 gm PO DAILY [facility] Stop: 04/25/25 08:59 Last Admin: 03/26/25 08:46 Dose: 17 gm Potassium Chloride (Potassium Chloride Crtab 20 Meq Tabcr) 20 meq PO BID17 [facility] Stop: 04/25/25 08:59 Last Admin: 03/26/25 08:45 Dose: 20 meq Spironolactone (Spironolactone 25 Mg Tab) 25 mg PO QAM [facility] Stop: 04/25/25 08:59 Last Admin: 03/26/25 08:23 Dose: 25 mg
--- NOTE | 2025-03-26 13:24 | Electrocardiogram Report ---
Test Reason : Blood Pressure : */* mmHG Vent. Rate : 92 BPM Atrial Rate : 92 BPM P-R Int : 172 ms QRS Dur : 154 ms QT Int : 418 ms P-R-T Axes : 64 -55 72 degrees QTcB Int : 516 ms Sinus rhythm with occasional Premature ventricular complexes and Fusion complexes Possible Left atrial enlargement Left axis deviation Non-specific intra-ventricular conduction block Lateral infarct , age undetermined Abnormal ECG When compared with ECG of 23-Dec-2014 06:46, Fusion complexes are now Present Premature ventricular complexes are now Present Non-specific intra-ventricular conduction block has replaced Incomplete left bundle block Lateral infarct is now Present Confirmed by Rodrick Dasilva ([id number]) on 03/26/2025 1:23:35 PM Referred By: REFERRED SELF Confirmed By: Rodrick Dasilva
[2025-03-27 07:59] LABS: BUN Creatinine Ratio 17.4 (10-20); Calcium 8.7 mg/dl (8.6-10.3); Magnesium 1.9 mg/dl (1.7-2.4); Phosphorus 4.1 mg/dl (2.5-4.9); Potassium 4.4 mmol/L (3.5-5.1)
--- NOTE | 2025-03-27 09:50 | Cardiology Progress Note ---
Date of Service March 27, 2025 Assessment & Plan (1) Acute on chronic heart failure with reduced ejection fraction (HFrEF, <= 40%): Plan: -LVEF <20%, with severe LVH chamber dilatation -severe secondary mitral regurgitation due to dilated CM , PASP~ 60 mm Hg, grade III diastolic dysfunction (2) Primary hypertension: (3) Diabetes mellitus type 2, noninsulin dependent: Plan Assessment: 64 year old [facility] female with known history of Systolic heart failure presented to the ER with several weeks of worsening lower extremity edema, abdominal bloat and shortness of breath. Plan: * Continue ASA 81, metoprolol succinate 50 mg. spironolactone 25 mg daily. * Change lisinopril to losartan to allow more smooth future transition to Entresto * Continue furosemide 80 mg IV BID. * Repeat BMP in adonis Mendoza DO Admission and Anticipated Discharge Date Admission Date: March 25, 2025 Subjective Patient seen in cardiology follow up. Feels better than when she initially presented to the hospital. Telemetry reveals SR in the 70s. Physical Exam Constitutional: well developed, well nourished and + ill appearing; no acute distress Neck: normal visual inspection and trachea midline Respiratory: normal respiratory effort; no respiratory distress, no labored breathing and no cough Auscultation: + diminished lung sounds (bilateral bases ); no crackles, no rales, no rhonchi and no wheezes Cardiovascular: Rate/Rhythm: regular rate and regular rhythm Heart Sounds: normal S1, normal S2 and + murmur (+2/6 systolic ) Vessels: dorsalis pedis pulses present; no JVD Extremities: + edema (+2 BLE, left worse than right) Skin: no rashes, warm and dry Psychiatric: A+Ox3, euthymic affect Results & Data Vital Signs (Past 12 Hours) Vital Signs Temp Pulse Pulse Resp BP Pulse Ox O2 Del Method 03/27/25 07:15 73 03/27/25 07:15 36.9 C 71 18 99/72 L 97 Room Air 03/27/25 02:39 36.8 C 78 18 106/72 92 Room Air 03/26/25 22:50 36.8 C 76 20 104/72 97 Room Air 03/26/25 21:57 72 Laboratory Results Comprehensive Metabolic Panel 03/27/25 Range/Units 06:54 Sodium 138 (136-145) mmol/L Potassium 4.4 D (3.5-5.1) mmol/L Chloride 102 (98-107) mmol/L Carbon Dioxide 29 (21-32) mmol/L BUN 16 (6-23) mg/dl Creatinine 0.92 (0.6-1.2) mg/dl Glucose 179 H (70-99(Fasting)) mg/dl Calcium 8.7 (8.6-10.3) mg/dl Intake and Output 03/26/25 03/27/25 03/27/25 22:59 06:59 14:59 Intake Total 200 / 600 100 / 600 240 / 240 Output Total 850 / 1350 500 / 1350 400 / 400 Balance -650 / -750 -400 / -750 -160 / -160 Intake: Oral 200 / 600 100 / 600 240 / 240 Output: Urine 850 / 1350 500 / 1350 400 / 400 Other: Weight 99.1 kg Weight Measurement Method Built in [facility]
--- NOTE | 2025-03-27 12:48 | Hospitalist Progress Note ---
Date of Service March 27, 2025 Assessment & Plan (1) Acute on chronic heart failure with reduced ejection fraction (HFrEF, <= 40%): Plan: Patient 64-year-old female with known systolic heart failure with ejection fraction of 2025% presents with increasing shortness of breath, dyspnea on exertion and leg swelling over the past several weeks. Presents in decompensated heart failure. Patient requires hospital level care, monitoring and IV medications and specialty consultation. Presented with dyspnea and swelling of the legs more on the left than the right for several weeks Chest x-ray is compatible with cardiomegaly and CHF Aggressive IV diuresis with Lasix. Patient reports that she was taking 160 to 200 mg of Lasix orally on a daily basis at home without significant impact on her edema or symptoms. She has been diuresing enough with a negative balance of 600 since admission Will continue current dose of furosemide 80 mg IV twice daily and monitor electrolytes Appreciate cardiology input and recommendation Echo of the heart showedLV is severely dilated with severe global hypokinesis of the left ventricle. LV systolic function is severely reduced with EF of less than 20%. LA severely dilated and there is severe mitral regurgitation. 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 the patient but the patient refused She has been stable without any significant symptoms Her lisinopril will be changed to losartan and there will be a plan to start Entresto as an outpatient if the patient can tolerate Will continue current management and observe in the hospital Medications: Aspirin 81 mg, metoprolol succinate 50 mg and spironolactone 25 mg daily Lisinopril has been changed to losartan with the review to future transition to Entresto Continue furosemide 80 mg twice daily Will monitor BMP and electrolytes (2) Primary hypertension: Plan: Blood pressure remains stable at the lower side at 115/77 (3) Diabetes mellitus type 2, noninsulin dependent: Plan: Monitor glucose, insulin sliding scale. At some point may need to have discussion with them if that she would be interested starting Jardiance, may be an issue affordability for them (4) Obesity (BMI 30.0-34.9): Plan DVT prophylaxis Subcu Lovenox CODE STATUS Full Case management to help coordinate outpatient follow-up with CHF clinic Discussed with the Admission and Anticipated Discharge Date Admission Date: March 25, 2025 Subjective 03/26/2025 The patient was seen and examined in telemetry unit in presence of the She was admitted with acute CHF and has been feeling much better since this morning Denies any chest pain, palpitation or shortness of breath She has been saturating normally on room air and the left leg swelling is improved 03/27/2025 The patient was seen and examined in telemetry unit in presence of the She has been feeling much better and the leg swelling is down does not have any chest pain, palpitation or shortness of breath She wants to go home Review of Systems Review of Systems: All systems reviewed and unremarkable except as noted below Physical Exam Physical Exam: Lying in bed without any acute distress Constitutional: well developed, well nourished, + ill appearing and + obese Eyes: PERRL, conjunctivae normal, anicteric sclerae ENMT: external ear and nose normal, oropharynx normal Neck: trachea midline, no thyromegaly Respiratory: no respiratory distress Auscultation: + diminished lung sounds and + crackles (Minimal crackles at the bases) Cardiovascular: Rate/Rhythm: regular rate and regular rhythm; not tachycardic Heart Sounds: normal S1 and normal S2; no murmur Extremities: + edema ( 1+ edema bilaterally more on the left than the right side) Gastrointestinal (Abdomen): Inspection/Auscultation: normal bowel sounds; abdomen not distended Percussion/Palpation: abdomen soft; abdomen nontender Musculoskeletal: No acute arthritis involving any of the joint Neurologic: normal touch/pain/proprioception and moves all extremities; no focal motor deficits Lymphatic: no cervical or axillary lymphadenopathy Results & Data Results & Data Vital Signs (Past 12 Hours) Vital Signs Temp Pulse Pulse Resp BP Pulse Ox O2 Del Method 03/27/25 11:00 37.0 C 79 17 115/77 97 Room Air 03/27/25 07:15 73 03/27/25 07:15 36.9 C 71 18 99/72 L 97 Room Air 03/27/25 02:39 36.8 C 78 18 106/72 92 Room Air Laboratory Results Current Inpatient Medications Acetaminophen (Acetaminophen 325 Mg Tab) 650 mg PO Q4H PRN PRN Reason: Pain or Fever Stop: 04/24/25 22:37 Last Admin: 03/26/25 00:09 Dose: 650 mg Al Hydrox/Mg Hydrox/Simethicone (Aluminum/Magnesium Susp 30 Ml Udc) 15 ml PO Q4H PRN PRN Reason: Dyspepsia Stop: 04/24/25 22:37 Aspirin (Aspirin 81 Mg Ectab) 81 mg PO DAILY [facility] Stop: 04/25/25 08:59 Last Admin: 03/27/25 08:21 Dose: 81 mg Dextrose (Dextrose 50% 50 Ml Syringe) 25 - 50 ml IV UD PRN; Protocol PRN Reason: Hypoglycemia Protocol Stop: 04/24/25 22:37 Enoxaparin Sodium (Enoxaparin Inj 40 Mg/0.4 Ml Syr) 40 mg SQ Q24H [facility] Stop: 04/24/25 20:59 Last Admin: 03/26/25 20:08 Dose: 40 mg Furosemide (Furosemide 40 Mg/4 Ml Vial) 80 mg IV DAILY [facility] Stop: 04/27/25 08:59 Glucagon (Glucagon For Inj 1 Mg Vial) 1 mg SQ UD PRN; Protocol PRN Reason: Hypoglycemia Protocol Stop: 04/24/25 22:37 Glucose (Glucose 40% Gel 15 Gm Tube) 15 - 30 gm PO UD PRN; Protocol PRN Reason: Hypoglycemia Protocol Stop: 04/24/25 22:37 Glucose (Glucose 10 Tab/Tube) 4 - 8 tab PO UD PRN; Protocol PRN Reason: Hypoglycemia Protocol Stop: 04/24/25 22:37 Insulin Aspart (Insulin Aspart Per Unit Charge) 0 units SC ACHS [facility] Stop: 04/24/25 22:37 Last Admin: 03/27/25 12:12 Dose: 5 units Losartan Potassium (Losartan Potassium 25 Mg Tab) 25 mg PO QAM [facility] Stop: 04/27/25 08:59 Magnesium Oxide (Magnesium Oxide 400 Mg Tab) 400 mg PO QAM [facility] Stop: 04/25/25 08:59 Last Admin: 03/27/25 08:19 Dose: 400 mg Melatonin (Melatonin 3 Mg Tab) 3 mg PO HS PRN PRN Reason: Sleep Stop: 04/24/25 22:37 Metoprolol Succinate (Metoprolol Succ 50mg Ext Rel Tab) 50 mg PO QAM [facility] Stop: 04/25/25 08:59 Last Admin: 03/27/25 08:20 Dose: 50 mg Miscellaneous (Carbohydrates For Hypoglycemia ) 15 - 30 gm PO UD PRN PRN Reason: Hypoglycemia Protocol Stop: 04/24/25 22:37 Ondansetron HCl (Ondansetron Inj 2 Mg/Ml 2 Ml Vial) 4 mg IV Q6H PRN PRN Reason: Nausea Stop: 04/24/25 22:37 Polyethylene Glycol (Polyethylene (Miralax) 17 Gm Pack) 17 gm PO DAILY [facility] Stop: 04/25/25 08:59 Last Admin: 03/27/25 08:21 Dose: 17 gm Potassium Chloride (Potassium Chloride Crtab 20 Meq Tabcr) 20 meq PO DAILY [facility] Stop: 04/27/25 08:59 Spironolactone (Spironolactone 25 Mg Tab) 25 mg PO QAM [facility] Stop: 04/25/25 08:59 Last Admin: 03/27/25 08:21 Dose: 25 mg Diagnostic Findings BMP 03/27/25 06:54 Sodium 138 Potassium 4.4 D Chloride 102 Carbon Dioxide 29 BUN 16 Creatinine 0.92 Glucose 179 H Calcium 8.7 Medications Administered Current Inpatient Medications Acetaminophen (Acetaminophen 325 Mg Tab) 650 mg PO Q4H PRN PRN Reason: Pain or Fever Stop: 04/24/25 22:37 Last Admin: 03/26/25 00:09 Dose: 650 mg Al Hydrox/Mg Hydrox/Simethicone (Aluminum/Magnesium Susp 30 Ml Udc) 15 ml PO Q4H PRN PRN Reason: Dyspepsia Stop: 04/24/25 22:37 Aspirin (Aspirin 81 Mg Ectab) 81 mg PO DAILY [facility] Stop: 04/25/25 08:59 Last Admin: 03/27/25 08:21 Dose: 81 mg Dextrose (Dextrose 50% 50 Ml Syringe) 25 - 50 ml IV UD PRN; Protocol PRN Reason: Hypoglycemia Protocol Stop: 04/24/25 22:37 Enoxaparin Sodium (Enoxaparin Inj 40 Mg/0.4 Ml Syr) 40 mg SQ Q24H [facility] Stop: 04/24/25 20:59 Last Admin: 03/26/25 20:08 Dose: 40 mg Furosemide (Furosemide 40 Mg/4 Ml Vial) 80 mg IV DAILY [facility] Stop: 04/27/25 08:59 Glucagon (Glucagon For Inj 1 Mg Vial) 1 mg SQ UD PRN; Protocol PRN Reason: Hypoglycemia Protocol Stop: 04/24/25 22:37 Glucose (Glucose 40% Gel 15 Gm Tube) 15 - 30 gm PO UD PRN; Protocol PRN Reason: Hypoglycemia Protocol Stop: 04/24/25 22:37 Glucose (Glucose 10 Tab/Tube) 4 - 8 tab PO UD PRN; Protocol PRN Reason: Hypoglycemia Protocol Stop: 04/24/25 22:37 Insulin Aspart (Insulin Aspart Per Unit Charge) 0 units SC ACHS [facility] Stop: 04/24/25 22:37 Last Admin: 03/27/25 12:12 Dose: 5 units Losartan Potassium (Losartan Potassium 25 Mg Tab) 25 mg PO QAM [facility] Stop: 04/27/25 08:59 Magnesium Oxide (Magnesium Oxide 400 Mg Tab) 400 mg PO QAM [facility] Stop: 04/25/25 08:59 Last Admin: 03/27/25 08:19 Dose: 400 mg Melatonin (Melatonin 3 Mg Tab) 3 mg PO HS PRN PRN Reason: Sleep Stop: 04/24/25 22:37 Metoprolol Succinate (Metoprolol Succ 50mg Ext Rel Tab) 50 mg PO QAM [facility] Stop: 04/25/25 08:59 Last Admin: 03/27/25 08:20 Dose: 50 mg Miscellaneous (Carbohydrates For Hypoglycemia ) 15 - 30 gm PO UD PRN PRN Reason: Hypoglycemia Protocol Stop: 04/24/25 22:37 Ondansetron HCl (Ondansetron Inj 2 Mg/Ml 2 Ml Vial) 4 mg IV Q6H PRN PRN Reason: Nausea Stop: 04/24/25 22:37 Polyethylene Glycol (Polyethylene (Miralax) 17 Gm Pack) 17 gm PO DAILY [facility] Stop: 04/25/25 08:59 Last Admin: 03/27/25 08:21 Dose: 17 gm Potassium Chloride (Potassium Chloride Crtab 20 Meq Tabcr) 20 meq PO DAILY [facility] Stop: 04/27/25 08:59 Spironolactone (Spironolactone 25 Mg Tab) 25 mg PO QAM [facility] Stop: 04/25/25 08:59 Last Admin: 03/27/25 08:21 Dose: 25 mg
[2025-03-27 19:39] VITALS: RESP 18
[2025-03-28 07:19] VITALS: TEMP 97.9
[2025-03-28 07:30] LABS: Hematocrit (blood only) 37.5 % (37.0-47.0); Hemoglobin 13.1 g/dl (12.0-16.0); Mean Corpuscular Hemoglobin 33.7 pg (25.0-34.0); Mean Corpuscular Hgb Conc 34.9 g/dL (32.0-36.0); Mean Corpuscular Volume 96.4 fL (80.0-100.0); Mean Platelet Volume 11.2 fL (9.4-12.4); Platelet Count 234 K/uL (130-400); RDW Coefficient of Variation 13.8 % (11.5-14.5); RDW Standard Deviation 48.3 fL (36.4-46.3); Red Blood Count 3.89 M/uL (4.20-5.40); White Blood Count 6.24 K/ul (4.8-10.8)
[2025-03-28 07:55] LABS: Creatinine Clr Calc Pharmacy 82.2 ml/min
[2025-03-28] MEDS: LOSARTAN POTASSIUM 25 MG TAB PO SCH (08:39)
[2025-03-28] MEDS: FUROSEMIDE 40 MG/4 ML VIAL IV SCH (08:40)
[2025-03-28] MEDS: POTASSIUM CHLORIDE CRTAB 20 MEQ TABCR PO SCH (08:45)
[2025-03-28 11:03] VITALS: BP 116/82; O2SAT 99
--- NOTE | 2025-03-28 12:18 | Hospitalist Progress Note ---
Date of Service March 28, 2025 Assessment & Plan (1) Acute on chronic heart failure with reduced ejection fraction (HFrEF, <= 40%): Plan: Presented with dyspnea and swelling of the legs more on the left than the right for several weeks Chest x-ray is compatible with cardiomegaly and CHF Echo of the heart showedLV is severely dilated with severe global hypokinesis of the left ventricle. LV systolic function is severely reduced with EF of less than 20%. LA severely dilated and there is severe mitral regurgitation. Dilated cardiomyopathy with moderate tricuspid regurgitation. Severe pulmonary hypertension is present compared to the echo of the LV systolic function was 20 to 25% at the time and the findings of moderate mitral regurgitation at that time too Patient was admitted to the hospital; was started on IV Lasix with improvement in bilateral pitting edema and shortness of breath. She was started on losartan, metoprolol succinate and Aldactone. Patient refused ICD placement after discussion with cardiology. Currently on IV Lasix 80 mg once a day; continue (2) Primary hypertension: Plan: Stable, continue current meds (3) Diabetes mellitus type 2, noninsulin dependent: Plan: Monitor glucose, insulin sliding scale. (4) Obesity (BMI 30.0-34.9): Plan DVT prophylaxis Subcu Lovenox CODE STATUS Full Case management to help coordinate outpatient follow-up with CHF clinic. Time spent evaluating patient, direct bedside care, chart review, placing orders, interpretation of diagnostic studies, discussion with consultants, patient, and family members, as well as other required patient management activities is 50 minutes Please note the above document was generated using voice recognition software. It may contain grammatical, syntax or spelling errors. Any formal questions or concerns about the content, text or information contained within the body of this dictation should be directly addressed to the provider for clarification Admission and Anticipated Discharge Date Admission Date: March 25, 2025 Subjective Patient seen and examined at bedside She reports that she is feeling much better with her breathing; bilateral pitting edema is better No significant events overnight Review of Systems Review of Systems: All systems reviewed & are unremarkable except as noted in Subjective Physical Exam Physical Exam: Constitutional: WD/WN, vitals as above, NAD, sitting up in bed, pleasant, conversing easily Respiratory: bilateral clear breath sounds Cardiovascular: RRR, no murmur, no edema Vessels: no JVD or carotid bruit Chest: normal inspection of chest Abdomen: normal bowel sounds, soft, nontender, no hepatosplenomegaly Musculoskeletal: no cyanosis or clubbing, extremities motor strength 5/5 Skin: no rashes, warm and dry normal turgor Neurologic: PERRL, EOMI, accommodation nl, no face palsy, no dysarthria CN's II- XI intact bilaterally and moves all extremities Psychiatric: A+Ox3, euthymic affect Results & Data Results & Data Vital Signs (Past 12 Hours) Vital Signs Temp Pulse Pulse Resp BP Pulse Ox O2 Del Method 03/28/25 11:00 36.6 C 83 18 116/82 99 Room Air 03/28/25 10:54 68 03/28/25 07:15 36.6 C 68 18 110/73 96 Room Air 03/28/25 03:30 36.4 C L 73 18 107/68 95 Room Air
--- NOTE | 2025-03-28 12:51 | Cardiology Progress Note ---
Date of Service March 28, 2025 Assessment & Plan (1) Acute on chronic heart failure with reduced ejection fraction (HFrEF, <= 40%): Plan: -LVEF <20%, with severe LVH chamber dilatation -severe secondary mitral regurgitation due to dilated CM , PASP~ 60 mm Hg, grade III diastolic dysfunction (2) Primary hypertension: (3) Diabetes mellitus type 2, noninsulin dependent: Plan 03/27/[address] Mendoza Assessment: 64 year old [employer] female with known history of Systolic heart failure presented to the ER with several weeks of worsening lower extremity edema, abdominal bloat and shortness of breath. Plan: * Continue ASA 81, metoprolol succinate 50 mg. spironolactone 25 mg daily. * Change lisinopril to losartan to allow more smooth future transition to Entresto * Continue furosemide 80 mg IV BID. * Repeat BMP in am 03/28/25: Ongoing diuresis noted over the last 24 hours. Good urine outputs. Negative 3.5 L since admission that has been recorded. Weight has trended downward somewhat since admission but improved volume status noted and improved symptoms. Continue ASA 81 mg daily, metoprolol 50 mg, losartan 25 mg, and spironolactone 25 mg. Would transition to furosemide PO 80 mg BID on discharge (prior home dose was 80 mg daily) Future transition to Entresto if possible as outpatient. Will need f/u BMP as outpatient. Patient has previously declined ICD. Conservative therapies preferred by patient. Further recommendations pending discussion/review with Dr. Mendoza Case discussed with Dr. Mendoza I spent a total of 30 minutes on the date of service in preparation, delivery, and documentation of the care provided to this patient, excluding any time spent in the performance of separately billed services. Maria Esther Guzmán PA-C Department of Cardiology, [facility] This chart was completed in part utilizing Speech Voice Recognition Software. Grammatical errors, random word insertions, pronoun errors, and incomplete sentences are an occasional consequence of this system due to software limitations, ambient noise, and hardware issues. Any formal questions or concerns about the content, text, or information contained within the body of is dictation should be directly addressed to the provider for clarification. Admission and Anticipated Discharge Date Admission Date: March 25, 2025 Supervising Physician Co-Signing Physician Notes Attending attestation: Case reviewed with the advanced practitioner. I have personally performed a history and physical examination on the patient. I have reviewed the advanced practitioner's documentation on the date of service referenced in note, and I agree with, and take responsibility for the plan of care. Stable for discharge on Furosemide 80 mg p.o. twice daily Will facilitate follow-up with [facility] cardiology clinic and [facility] clinic. I spent a total of 20 minutes coordinating, documenting, and providing care for this patient excluding time spent in the performance of separately billed services or time spent by another provider. Christian Mendoza DO Subjective Patient resting in bed comfortably. at bedside. She has been ambulating in room without significant dyspnea. Significant improvement in her edema per patient. SOB also improved. No chest pain or dizziness. Review of Systems Review of Systems: All systems reviewed & are unremarkable except as noted in HPI & below Physical Exam Constitutional: well developed, well nourished and + ill appearing; no acute distress Neck: normal visual inspection and trachea midline Respiratory: normal respiratory effort; no respiratory distress, no labored breathing and no cough Auscultation: + diminished lung sounds (bilateral bases ); no crackles, no rales, no rhonchi and no wheezes Cardiovascular: Rate/Rhythm: regular rate and regular rhythm Heart Sounds: normal S1, normal S2 and + murmur (+2/6 systolic ) Vessels: dorsalis pedis pulses present; no JVD Extremities: + edema (only trace edema LLE with varicosities) Gastrointestinal (Abdomen): normal bowel sounds, soft, nontender, no hepatosplenomegaly Skin: no rashes, warm and dry Psychiatric: A+Ox3, euthymic affect Results & Data Vital Signs (Past 12 Hours) Vital Signs Temp Pulse Pulse Resp BP Pulse Ox O2 Del Method 03/28/25 11:00 36.6 C 83 18 116/82 99 Room Air 03/28/25 10:54 68 03/28/25 07:15 36.6 C 68 18 110/73 96 Room Air 03/28/25 03:30 36.4 C L 73 18 107/68 95 Room Air Laboratory Results CBC 03/28/25 Range/Units 06:57 WBC 6.24 (4.8-10.8) K/ul RBC 3.89 L (4.20-5.40) M/uL Hgb 13.1 (12.0-16.0) g/dl Hct 37.5 (37.0-47.0) % Plt Count 234 (130-400) K/uL Comprehensive Metabolic Panel 03/28/25 Range/Units 06:57 Sodium 136 (136-145) mmol/L Potassium 4.0 (3.5-5.1) mmol/L Chloride 101 (98-107) mmol/L Carbon Dioxide 27 (21-32) mmol/L BUN 16 (6-23) mg/dl Creatinine 0.84 (0.6-1.2) mg/dl Glucose 172 H (70-99(Fasting)) mg/dl Calcium 9.0 (8.6-10.3) mg/dl Intake and Output 03/27/25 03/28/25 03/28/25 22:59 06:59 14:59 Intake Total 450 / 1030 100 / 1030 Output Total 300 / 2600 700 / 2600 200 / 200 Balance 150 / -1570 -600 / -1570 -200 / -200 Intake: Oral 450 / 1030 100 / 1030 Output: Urine 300 / 2600 700 / 2600 200 / 200 Other: # Unmeasured Voids 2 Weight 99.2 kg Weight Measurement Method Built in [facility] Diagnostic Findings Telemetry reviewed: NSR in the 70-80's, occ PVC Medications Administered Current Inpatient Medications Acetaminophen (Acetaminophen 325 Mg Tab) 650 mg PO Q4H PRN PRN Reason: Pain or Fever Stop: 04/24/25 22:37 Last Admin: 03/26/25 00:09 Dose: 650 mg Al Hydrox/Mg Hydrox/Simethicone (Aluminum/Magnesium Susp 30 Ml Udc) 15 ml PO Q4H PRN PRN Reason: Dyspepsia Stop: 04/24/25 22:37 Aspirin (Aspirin 81 Mg Ectab) 81 mg PO DAILY [facility] Stop: 04/25/25 08:59 Last Admin: 03/28/25 08:40 Dose: 81 mg Dextrose (Dextrose 50% 50 Ml Syringe) 25 - 50 ml IV UD PRN; Protocol PRN Reason: Hypoglycemia Protocol Stop: 04/24/25 22:37 Enoxaparin Sodium (Enoxaparin Inj 40 Mg/0.4 Ml Syr) 40 mg SQ Q24H [facility] Stop: 04/24/25 20:59 Last Admin: 03/27/25 21:06 Dose: 40 mg Furosemide (Furosemide 40 Mg/4 Ml Vial) 80 mg IV DAILY [facility] Stop: 04/27/25 08:59 Last Admin: 03/28/25 08:40 Dose: 80 mg Glucagon (Glucagon For Inj 1 Mg Vial) 1 mg SQ UD PRN; Protocol PRN Reason: Hypoglycemia Protocol Stop: 04/24/25 22:37 Glucose (Glucose 40% Gel 15 Gm Tube) 15 - 30 gm PO UD PRN; Protocol PRN Reason: Hypoglycemia Protocol Stop: 04/24/25 22:37 Glucose (Glucose 10 Tab/Tube) 4 - 8 tab PO UD PRN; Protocol PRN Reason: Hypoglycemia Protocol Stop: 04/24/25 22:37 Insulin Aspart (Insulin Aspart Per Unit Charge) 0 units SC ACHS [facility] Stop: 04/24/25 22:37 Last Admin: 03/28/25 12:01 Dose: 6 units Losartan Potassium (Losartan Potassium 25 Mg Tab) 25 mg PO QAM [facility] Stop: 04/27/25 08:59 Last Admin: 03/28/25 08:39 Dose: 25 mg Magnesium Oxide (Magnesium Oxide 400 Mg Tab) 400 mg PO QAM [facility] Stop: 04/25/25 08:59 Last Admin: 03/28/25 08:40 Dose: 400 mg Melatonin (Melatonin 3 Mg Tab) 3 mg PO HS PRN PRN Reason: Sleep Stop: 04/24/25 22:37 Metoprolol Succinate (Metoprolol Succ 50mg Ext Rel Tab) 50 mg PO QAM [facility] Stop: 04/25/25 08:59 Last Admin: 03/28/25 08:40 Dose: 50 mg Miscellaneous (Carbohydrates For Hypoglycemia ) 15 - 30 gm PO UD PRN PRN Reason: Hypoglycemia Protocol Stop: 04/24/25 22:37 Ondansetron HCl (Ondansetron Inj 2 Mg/Ml 2 Ml Vial) 4 mg IV Q6H PRN PRN Reason: Nausea Stop: 04/24/25 22:37 Polyethylene Glycol (Polyethylene (Miralax) 17 Gm Pack) 17 gm PO DAILY [facility] Stop: 04/25/25 08:59 Last Admin: 03/28/25 08:42 Dose: Not Given Potassium Chloride (Potassium Chloride Crtab 20 Meq Tabcr) 20 meq PO DAILY [facility] Stop: 04/27/25 08:59 Last Admin: 03/28/25 08:45 Dose: 20 meq Spironolactone (Spironolactone 25 Mg Tab) 25 mg PO [facility] Stop: 04/25/25 08:59 Last Admin: 03/28/25 08:39 Dose: 25 mg
--- NOTE | 2025-03-28 13:47 | Discharge Summary ---
Date of Service March 28, 2025 Admission HPI Per Admitting Provider Patient 64-year-old female with known systolic congestive heart failure and cardiomyopathy presents to the emergency room from her physician's office with complaints of shortness of breath that has been progressing over the past several weeks as well as leg swelling. In the emergency room chest x-ray and BNP is consistent with decompensated heart failure. Ultrasound lower extremities negative for DVT. She was referred to our service for further evaluation. Time my evaluation patient still somewhat short of breath. She admits to significant leg swelling . This is progressed over the past several weeks. She admits to dyspnea on exertion, orthopnea and decreased exercise tolerance. She was concerned that she could not fully plant her whole garden due to her shortness of breath. She denies any chest pain. No fever or chills. No cough or cold symptoms. No nausea or vomiting. No changes in her bowel or bladder habits. She reports that she knows that she needs to take additional Lasix. She states that she has been taking up to four 540 mg tablets of Lasix on a daily basis but has not really noticed much improvement in her edema. Admission Exam Per Admitting Provider Constitutional: Alert, ill in appearance, nontoxic HEENT: Mucous membranes moist. Sclera clear Neck: Soft, no adenopathy Lungs: Decreased breath sounds, poor airflow, fine crackles throughout CV: S1-S2, regular, no significant murmur Abdomen: Soft, nontender, nondistended Extremities: Thick pitting edema up through knees and posterior thighs Musculoskeletal: No significant joint tenderness Neuro: No focal deficits Psych: Cooperative, normal mood Principal Diagnosis Acute on chronic systolic heart failure Discharge Exam Constitutional: WD/WN, vitals as above, NAD, sitting up in bed, pleasant, conversing easily Respiratory: normal respiratory effort, lungs clear to auscultation, no wheeze, rales, rhonchi. Normal insp/exp effort, no accessory muscle use Cardiovascular: RRR, no murmur, no edema Vessels: no JVD or carotid bruit Chest: normal inspection of chest Abdomen: normal bowel sounds, soft, nontender, no hepatosplenomegaly Musculoskeletal: no cyanosis or clubbing, extremities motor strength 5/5 Skin: no rashes, warm and dry normal turgor Neurologic: PERRL, EOMI, accommodation nl, no face palsy, no dysarthria CN's II- XI intact bilaterally and moves all extremities Psychiatric: A+Ox3, euthymic affect Discharge Data Allergies Allergy/AdvReac Type Severity Reaction Status Date / Time No Known Allergies Allergy Unverified 12/21/14 03:45 Consultations 03/25/25 22:38 Consult Cardiology Routine Ordered Studies 03/25/25 17:07 US venous doppler LE Stat Hospital Course (1) Acute on chronic heart failure with reduced ejection fraction (HFrEF, <= 40%): (2) Primary hypertension: (3) Diabetes mellitus type 2, noninsulin dependent: (4) Obesity (BMI 30.0-34.9): Plan Presented with dyspnea and swelling of the legs more on the left than the right for several weeks Chest x-ray is compatible with cardiomegaly and CHF Echo of the heart showedLV is severely dilated with severe global hypokinesis of the left ventricle. LV systolic function is severely reduced with EF of less than 20%. LA severely dilated and there is severe mitral regurgitation. Dilated cardiomyopathy with moderate tricuspid regurgitation. Severe pulmonary hypertension is present compared to the echo of the LV systolic function was 20 to 25% at the time and the findings of moderate mitral regurgitation at that time too Patient was admitted to the hospital; was started on IV Lasix with improvement in bilateral pitting edema and shortness of breath. She was started on losartan, metoprolol succinate and Aldactone. Patient refused ICD placement after discussion with cardiology. At the time of discharge, she was placed on a Lasix 80 mg twice a day. Lisinopril was stopped Please note the above document was generated using voice recognition software. It may contain grammatical, syntax or spelling errors. Any formal questions or concerns about the content, text or information contained within the body of this dictation should be directly addressed to the provider for clarification Total Time Total Time Spent Total Time Spent (In Minutes): 45 Total Time Includes: Examination of the Patient, Discharge Planning, Medication Reconciliation, Communication With Other Providers and Other Discharge Plan Discharge Items Patient Disposition: Home - Self-Care Reason For Visit: CHF Discharge Diagnosis: Acute on chronic heart failure with reduced ejection fraction (HFrEF, <= 40%) Condition on Discharge: Fair Activity: Resume your previous activity Non-emergency contact: Primary Care Provider Call non-emergency contact if: you have any medication questions and your symptoms worsen Follow-up/Referrals: Blaze,Judsonia I., MD [Primary Care Provider] - Diet: Regular Addtl Attending Provider Instructions: You were admitted to the hospital with shortness of breath. You are found to have low heart function with ejection fraction of less than 20%. Following medication changes has been done; 1) Lasix 80 mg twice a day ;take morning and in afternoon. This is a water pill that will help decrease the congestion 2) start taking losartan 25 mg once a day 3) Take Aldactone 25 mg once a day 4) Take Potassium chloride once a day 5) Take Mg0 once a day. 6) STOP Taking LISINOPRIL Measure your weight daily at home and make a log of it. If you notice that your weight is increasing by 3 to 5 pounds and you are noticing lower extremity swelling; take extra dose of Lasix 40 mg in the afternoon Pending Studies at Discharge: No Stand-Alone Forms: [facility] Sm[facility] Cess[facility] Medications and DC Order Prescriptions: New spironolactone 25 mg Tablet 25 mg PO QAM 30 Days Qty: 30 0RF potassium chloride 20 mEq Tablet,Er Particles/Crystals 20 meq PO DAILY Qty: 30 0RF magnesium oxide 400 mg (241.3 mg magnesium) Tablet 400 mg PO QAM Qty: 30 0RF losartan 25 mg Tablet 25 mg PO QAM Qty: 30 0RF Continued metformin 500 mg tablet 1,000 mg PO BIDM metoprolol succinate 50 mg tablet extended release 24 hr 50 mg PO QAM glipizide 2.5 mg tablet extended release 24hr 2.5 mg PO DAILYBB Rx Instructions: 30 MINUTES PRIOR TO BREAKFAST aspirin 81 mg Tablet,Delayed Release (Dr/Ec) 81 mg PO DAILY nitroglycerin [Nitrostat] 0.4 mg Tablet, Sublingual 0.4 mg sublingual .Q 5 MINUTES MDD 3 TABS IN 15 MINUTES PRN (Reason: Chest Pain) Changed furosemide 40 mg tablet 80 mg PO BIDM Qty: 60 0RF Rx Instructions: TAKE 2 TABLETS DAILY. MAY TAKE 3rd TABLET IF NEEDED FOR WEIGHT GAIN OR FLUID BACKUP Discontinued lisinopril 2.5 mg tablet 2.5 mg PO QAM Discharge Orders: Discharge Order (Routine); Ordered 03/28/25 Ordered By: Pierre Huerta Admission Data Admit Date/Time: 06/19/25 21:02 Attending Provider: Pierre Huerta Admit Provider: Micheal Wylie Primary Care Provider: Bronson Thakur I. Other Providers: Christian Mendoza
[2025-03-28 15:31] VITALS: PULSE 74
== END 2025-03-28 16:37 | disposition home or self-care (01) | DRG 291 ==
LOC: ED 16:29 → 2S 21:02 → SUATTDRO 21:02 → 2S 22:13